=== PATIENT | male | born 1975 | race Two or more races ===

== ENCOUNTER 2020-08-23 01:05 | Emergency (ER) | payer BC ==
[~2020-08-23] VITALS: Ht 167.6 cm; Wt 92.3 kg
[2020-08-23 01:12] VITALS: Ht 167.6 cm; Wt 92.3 kg
[2020-08-23 01:23] LABS: BILIRUBIN NEGATIVE (NEGATIVE); KETONE NEGATIVE (NEGATIVE); NITRITE NEGATIVE (NEGATIVE); UROBILINOGEN NORMAL mg/dL (< 2)
[2020-08-23 01:29] LABS: BASOPHILS 0.2 % (0-2); EOSINOPHILS 2.4 % (0-7); HEMATOCRIT 48.7 % (42.0-54.0); HEMOGLOBIN 16.5 g/dL (13.5-17.5); IMMATURE GRANULOCYTES 0.2 % (0-5); LYMPHOCYTE ABS# 2.42 10x3/uL (1.32-3.57); MCH 30.1 pg (26.0-34.0); MCHC 33.9 g/dL (31.0-37.0); MCV 88.9 fL (80.0-100.0); MEAN PLATELET VOLUME 9.3 fL (7.4-10.4); MONOCYTES 7.4 % (2-11); NEUTROPHIL ABS# 9.64 10x3/uL (1.78-5.38); NEUTROPHILS 71.8 % (40-80); PLATELET COUNT 221 10x3/uL (130-400); RBC 5.48 10x6/uL (4.20-6.10); RDW 12.7 % (11.5-14.5); WBC 13.4 10x3/uL (4.8-10.8)
[2020-08-23 01:54] LABS: CALC OSMOLALITY 277 mosm/kg (275-300); CALCIUM 9.1 mg/dL (8.5-10.1); CARBON DIOXIDE 26.5 mmol/L (21.0-32.0); CHLORIDE - SERUM 106 mmol/L (98-107); CREATININE - SERUM 0.9 mg/dL (0.6-1.3); GLUCOSE 110 mg/dL (74-106); POTASSIUM - SERUM 4.2 mmol/L (3.5-5.1); SODIUM 139 mmol/L (136-145); UREA NITROGEN 11 mg/dL (7-18); eGFR NON AFRICAN AMERICAN > 90 mL/min (90-120)
[2020-08-23 02:02] LABS: ALBUMIN 3.8 g/dL (3.4-5.0); ALKALINE PHOSPHATASE 133 U/L (30-120); ALT (SGPT) 32 U/L (10-68); BILIRUBIN - TOTAL 0.48 mg/dL (0.2-1.3); PROTEIN - SERUM 7.7 g/dL (6.4-8.2)
[2020-08-23] MEDS ORDERED: FLOMAX0.4 MG PO (03:00)
[2020-08-23] MEDS ORDERED: HYDROCODONE-AC1 EAC2 PO (03:00)
[2020-08-23 03:42] VITALS: BP 113/64
== END 2020-08-23 03:43 | disposition home or self-care (01) ==
LOC: D.ER 01:05
PROVIDERS: Family Medicine
DX: R10.9 Unspecified abdominal pain (principal); N20.1 Calculus of ureter

== ENCOUNTER 2020-08-24 20:02 | Emergency (ER) | payer BC ==
[~2020-08-24] VITALS: Ht 167.6 cm; Wt 92.3 kg
[~2020-08-24 20:02] MED LIST: FLOMAX0.4 MG PO; HYDROCODONE-AC1 EAC2 PO
[2020-08-24 20:34] VITALS: Ht 167.6 cm; Wt 92.3 kg
[2020-08-24 21:53] LABS: BASOPHILS 0.3 % (0-2); EOSINOPHILS 4.2 % (0-7); HEMATOCRIT 44.5 % (42.0-54.0); HEMOGLOBIN 15.2 g/dL (13.5-17.5); IMMATURE GRANULOCYTES 0.3 % (0-5); LYMPHOCYTE ABS# 2.99 10x3/uL (1.32-3.57); LYMPHOCYTES 25.6 % (15-50); MCH 30.2 pg (26.0-34.0); MCHC 34.2 g/dL (31.0-37.0); MCV 88.5 fL (80.0-100.0); MEAN PLATELET VOLUME 9.6 fL (7.4-10.4); MONOCYTES 8.7 % (2-11); NEUTROPHILS 60.9 % (40-80); PLATELET COUNT 235 10x3/uL (130-400); RBC 5.03 10x6/uL (4.20-6.10); RDW 12.6 % (11.5-14.5); WBC 11.7 10x3/uL (4.8-10.8)
[2020-08-24 22:00] LABS: ANION GAP 9.8 mmol/L (8-16); CALCIUM 9.1 mg/dL (8.5-10.1); CARBON DIOXIDE 28.2 mmol/L (21.0-32.0)
[2020-08-24 22:01] LABS: CREATININE - SERUM 1.3 mg/dL (0.6-1.3)
[2020-08-24 22:07] LABS: ALBUMIN 3.6 g/dL (3.4-5.0); BILIRUBIN - TOTAL 0.45 mg/dL (0.2-1.3); PROTEIN - SERUM 7.2 g/dL (6.4-8.2)
[2020-08-24 23:25] LABS: BILIRUBIN NEGATIVE (NEGATIVE); KETONE NEGATIVE (NEGATIVE); NITRITE NEGATIVE (NEGATIVE); UROBILINOGEN NORMAL mg/dL (< 2)
[2020-08-24 23:26] LABS: BACTERIA FEW HPF (NONE SEEN); SQUAMOUS EPITHELIAL 0-5 HPF (0-4); WHITE CELLS - URINE 0-5 HPF (0-1)
[2020-08-25 00:53] VITALS: BP 131/84
== END 2020-08-25 00:53 | disposition home or self-care (01) ==
LOC: D.ER 20:02
PROVIDERS: Family Medicine
DX: N20.1 Calculus of ureter (principal); R10.9 Unspecified abdominal pain